=== PATIENT | male | born 1955 | race Caucasian/White ===

== ENCOUNTER → 2016-09-20 | Outpatient (CLI) | payer OTHER ==
[~2016-09-20] MED LIST: ABILIFY5 MG PO; CLARITIN-D 241 EACH PO; FISH OIL 1,0001 EAC4 PO; FLEXERIL 10 MG10 MG PO; LISINOPRIL10 MG PO; NEURONTIN800 MG PO; NEXIUM40 MG PO; PERCOCET 10-321 EACH PO; VISTARIL25 MG PO; XARELTO10 MG PO; ZOLOFT100 MG PO
[2016-09-20 12:54] LABS: HEMOGLOBIN 16.5 gm/dl (14.0-17.5); RED BLOOD COUNT 5.33 M/UL (4.20-5.50); WHITE BLOOD COUNT 5.6 K/UL (4.5-11.0)
[2016-09-20 13:20] LABS: BUN/CREATININE RATIO 10 (0-10)
== END ==
LOC: OPSV2 11:39
PROVIDERS: Orthopaedic Surgery
DX: Z01.812 Encounter for preprocedural laboratory examination (principal); Z01.810 Encounter for preprocedural cardiovascular examination; Z01.818 Encounter for other preprocedural examination; M87.9 Osteonecrosis, unspecified; I10 Essential (primary) hypertension
CPT/HCPCS: 36415; 71020; 80048; 85025; 87081; 93005

== ENCOUNTER → 2016-09-30 | Outpatient (CLI) | payer OTHER ==
[2016-09-30 15:44] LABS: BUN/CREATININE RATIO 15 (0-10)
== END ==
LOC: LAB 14:52
PROVIDERS: Orthopaedic Surgery
DX: Z01.812 Encounter for preprocedural laboratory examination (principal)
CPT/HCPCS: 80048; 86850; 86900; 86901

== ENCOUNTER 2016-10-01 05:30 | Inpatient (IN) | payer OTHER ==
[~2016-10-01] VITALS: Ht 165.1 cm; Wt 91.6 kg
[2016-10-01] MEDS ORDERED: NEXIUM40 MG PO (07:08)
[2016-10-01] MEDS ORDERED: ZOLOFT100 MG PO (07:09)
[2016-10-01] MEDS ORDERED: LISINOPRIL10 MG PO (07:10)
[2016-10-01] MEDS ORDERED: ABILIFY5 MG PO (07:10)
[2016-10-01] MEDS ORDERED: FISH OIL 1,0001 EAC4 PO (07:11)
[2016-10-01] MEDS ORDERED: NEURONTIN800 MG PO (07:11)
[2016-10-01] MEDS ORDERED: CLARITIN-D 241 EACH PO (07:12)
[2016-10-01] MEDS ORDERED: VISTARIL25 MG PO (07:12)
[2016-10-02 05:54] LABS: HEMOGLOBIN 11.7 gm/dl (14.0-17.5); RED BLOOD COUNT 3.77 M/UL (4.20-5.50); WHITE BLOOD COUNT 6.3 K/UL (4.5-11.0)
[2016-10-03 05:54] LABS: HEMOGLOBIN 10.9 gm/dl (14.0-17.5); RED BLOOD COUNT 3.49 M/UL (4.20-5.50)
[2016-10-03 05:59] LABS: WHITE BLOOD COUNT 8.2 K/UL (4.5-11.0)
[2016-10-04 06:47] LABS: RED BLOOD COUNT 3.23 M/UL (4.20-5.50); WHITE BLOOD COUNT 7.7 K/UL (4.5-11.0)
[2016-10-04] MEDS ORDERED: XARELTO10 MG PO (12:06)
[2016-10-04] MEDS ORDERED: PERCOCET 10-321 EACH PO (12:07)
== END 2016-10-04 12:49 | disposition home health service (06) | DRG 470 ==
LOC: ZOBSOF 05:30 → M/S 12:49
PROVIDERS: Family Medicine; ADMIT Orthopaedic Surgery
PROC: 0SR904A Replacement of Right Hip Joint with Ceramic on Polyethylene Synthetic Substitute, Uncemented, Open Approach (ICD-10-PCS; principal; 2016-10-01 07:45)
DX: M87.051 Idiopathic aseptic necrosis of right femur (principal); D62 Acute posthemorrhagic anemia; N17.9 Acute kidney failure, unspecified; E87.6 Hypokalemia; M25.551 Pain in right hip; M54.16 Radiculopathy, lumbar region; R26.2 Difficulty in walking, not elsewhere classified; I12.9 Hypertensive chronic kidney disease with stage 1 through stage 4 chronic kidney disease, or unspecified chronic kidney disease; N18.9 Chronic kidney disease, unspecified; M51.16 Intervertebral disc disorders with radiculopathy, lumbar region; E11.65 Type 2 diabetes mellitus with hyperglycemia; K21.9 Gastro-esophageal reflux disease without esophagitis; Z28.21 Immunization not carried out because of patient refusal; E78.5 Hyperlipidemia, unspecified; F17.220 Nicotine dependence, chewing tobacco, uncomplicated; Z79.899 Other long term (current) drug therapy; Z87.442 Personal history of urinary calculi; Z83.3 Family history of diabetes mellitus; Z86.73 Personal history of transient ischemic attack (TIA), and cerebral infarction without residual deficits
CPT/HCPCS: 36415; 72170; 76000; 80048; 80053; 85025; 97110; 97116; 97530; 97535; C1776; J0690; J1200; J2250; J2270; J2405; J2795; J3010; J3370; J7050; J7120; Q0162; Q0177

== ENCOUNTER 2016-10-07 17:33 | Inpatient (IN) | payer OTHER ==
[~2016-10-07] VITALS: Ht 165.1 cm; Wt 87.5 kg
[~2016-10-07 17:33] MED LIST changes: -FLEXERIL 10 MG10 MG PO
[2016-10-07 20:41] LABS: HEMOGLOBIN 10.3 gm/dl (14.0-17.5); RED BLOOD COUNT 3.31 M/UL (4.20-5.50)
[2016-10-07 20:54] LABS: BUN/CREATININE RATIO 12 (0-10)
[2016-10-08 07:01] LABS: RED BLOOD COUNT 3.55 M/UL (4.20-5.50); WHITE BLOOD COUNT 7.4 K/UL (4.5-11.0)
[2016-10-08 07:02] LABS: BUN/CREATININE RATIO 12 (0-10)
[2016-10-09 05:50] LABS: HEMOGLOBIN 10.8 gm/dl (14.0-17.5); RED BLOOD COUNT 3.5 M/UL (4.20-5.50); WHITE BLOOD COUNT 6.1 K/UL (4.5-11.0)
[2016-10-09 06:08] LABS: BUN/CREATININE RATIO 10 (0-10)
[2016-10-09] MEDS ORDERED: FLEXERIL 10 MG10 MG PO (16:53)
== END 2016-10-09 17:25 | disposition home or self-care (01) | DRG 556 ==
LOC: ER1 17:33 → ZEROF 21:50 → M/S 23:18
PROVIDERS: Emergency Medicine; Family Medicine; ADMIT Orthopaedic Surgery
DX: M79.81 Nontraumatic hematoma of soft tissue (principal); G89.18 Other acute postprocedural pain; F41.9 Anxiety disorder, unspecified; F32.9 Major depressive disorder, single episode, unspecified; I10 Essential (primary) hypertension; Z96.641 Presence of right artificial hip joint; Z79.01 Long term (current) use of anticoagulants; Z79.899 Other long term (current) drug therapy
CPT/HCPCS: 36415; 73502; 73552; 80048; 80053; 82962; 85025; 85027; 85379; 85610; 85730; 86140; 93971; 96374; 96375; 99284; J1644; J2405; J7030; Q0162; Q0177

== ENCOUNTER 2016-10-21 18:22 | Emergency (ER) | payer OTHER ==
[~2016-10-21 18:22] MED LIST changes: +FLEXERIL 10 MG10 MG PO
[2016-10-21 20:46] LABS: HEMOGLOBIN 12.6 gm/dl (14.0-17.5); RED BLOOD COUNT 4.14 M/UL (4.20-5.50); WHITE BLOOD COUNT 7.6 K/UL (4.5-11.0)
[2016-10-21 21:04] LABS: BUN/CREATININE RATIO 10 (0-10)
== END 2016-10-21 22:35 | disposition home or self-care (01) ==
LOC: ER1 18:22
PROVIDERS: Physician Assistant
DX: M25.551 Pain in right hip (principal); I10 Essential (primary) hypertension; F17.200 Nicotine dependence, unspecified, uncomplicated; Z87.442 Personal history of urinary calculi
CPT/HCPCS: 36415; 73700; 80053; 85025; 86140; 96374; 96375; 96376; 99284; J2270; J2405; J2550